=== PATIENT | female | born 1990 | race Caucasian/White ===

== ENCOUNTER → 2018-11-10 | Outpatient (CLI) | payer OTHER | LOC: LAB 19:46 | PROVIDERS: ATTEND Obstetrics & Gynecology | DX: E28.2 Polycystic ovarian syndrome (principal) | CPT/HCPCS: 36415; 84144 ==

== ENCOUNTER → 2018-12-11 | Outpatient (CLI) | payer OTHER | LOC: LAB 18:16 | PROVIDERS: ATTEND Obstetrics & Gynecology | DX: E28.2 Polycystic ovarian syndrome (principal) | CPT/HCPCS: 36415; 84144 ==

== ENCOUNTER → 2018-12-13 | Outpatient (CLI) | payer OTHER ==
--- NOTE | 2018-12-13 12:10 | Diagnostic Imaging Report ---
PROCEDURE: US Non-ob pelvis comp/trans. TECHNIQUE: Multiple realtime grayscale images were obtained of the pelvis in various projections endovaginally. Transabdominal imaging was also performed. INDICATION: Irregular menses. FINDINGS: Uterus measures 6.9 x 4.2 x 3.2 cm. Endometrial thickness is 1.1 cm. There are no discrete myometrial or endometrial masses. Both ovaries are normal in size, morphology and demonstrate normal blood flow. There is a 2 cm right ovarian cyst. There is a trace amount of free fluid near the cervix and right adnexa. There are no solid adnexal masses. IMPRESSION: 2 cm right ovarian cyst, otherwise unremarkable pelvic ultrasound. Dictated by: Dictated on workstation # [id number]
== END ==
LOC: RAD 11:15
PROVIDERS: ATTEND Obstetrics & Gynecology
DX: E28.2 Polycystic ovarian syndrome (principal)
CPT/HCPCS: 76830; 76856

== ENCOUNTER → 2019-04-14 | Outpatient (CLI) | payer OTHER ==
--- NOTE | 2019-04-14 13:43 | Diagnostic Imaging Report ---
INDICATION: survey. TECHNIQUE: Multiple real-time grayscale images were obtained over the gravid uterus. COMPARISON: None FINDINGS: There is a single live fetus in a breech presentation. heart rate was recorded at 133 bpm. Placenta is posterior. Amniotic fluid index is 9.7 cm. Cervical length is 3.8 cm. survey demonstrates kidneys, bladder and stomach to be unremarkable. brain is unremarkable. There is a four-chamber heart. There is three-vessel cord with normal insertion. spine is unremarkable. Biometrical measurements are as follows: Biparietal 4.63 cm, age 20 weeks 0 days. Head circumference 16.86 cm, age 19 weeks 4 days. Abdominal circumference 14.51 cm, age 19 weeks 6 days. Femur length 3.13 cm, age 19 weeks 6 days. Sonographic estimate age: 19 weeks 6 days. Sonographic estimated date of delivery: 09/02/2019. Estimated Weight: 311 gm (+/- 45 gm). LMP percentile: 65%. heart rate: 133 beats per minute. number: 1 of 1. IMPRESSION: Single live IUP 19 weeks 6 days gestational age. Estimated date of confinement sonographically is 09/02/2019. Dictated by: Dictated on workstation # [id number]
== END ==
LOC: RAD 12:00
PROVIDERS: ATTEND Nurse Practitioner Women's Health
DX: Z36.9 Encounter for antenatal screening, unspecified (principal); Z3A.19 19 weeks gestation of pregnancy
CPT/HCPCS: 76805

== ENCOUNTER 2019-08-30 08:05 | Inpatient (IN) | payer OTHER ==
[~2019-08-30] VITALS: Ht 162.6 cm; Wt 72.2 kg
[2019-08-30] VITALS (37 sets, daily range): BP systolic 113–145; BP diastolic 62–93
--- NOTE | 2019-08-30 07:55 | NUR ---
SERA ALONSO presented to unit via ambulation from ED, accompanied by , for scheduled IOL. Pt. weighed, gowned, voided, and to bed. EFHM and TOCO applied, VS taken. Pt. oriented to bed controls, call light, TV, heat, and A/C controls.
--- NOTE | 2019-08-30 08:17 | NUR ---
#20g IV to Rt.wrist x1 attempt by this RN. site patent, secured with opsite. admission labs collected from site.
--- NOTE | 2019-08-30 08:34 | NUR ---
admission paperwork completed.
[2019-08-30 08:40] LABS: BASOPHILS % (AUTO) 0 % (0-10); EOSINOPHILS # (AUTO) 0.1 10^3/uL (0.0-0.3); EOSINOPHILS % (AUTO) 1 % (0-10); HEMATOCRIT 33 % (35-52); HEMOGLOBIN 10.7 G/DL (11.5-16.0); LYMPHOCYTES # (AUTO) 1.9 X 10^3 (1.0-4.0); LYMPHOCYTES % (AUTO) 20 % (12-44); MEAN CORPUSCULAR HEMOGLOBIN 29 PG (25-34); MEAN CORPUSCULAR HGB CONC 33 G/DL (32-36); MEAN CORPUSCULAR VOLUME 88 FL (80-99); MEAN PLATELET VOLUME 11.5 FL (7.4-10.4); MONOCYTES # (AUTO) 0.6 X 10^3 (0.0-1.0); MONOCYTES % (AUTO) 7 % (0-12); NEUTROPHILS # (AUTO) 6.7 X 10^3 (1.8-7.8); NEUTROPHILS % (AUTO) 72 % (42-75); PLATELET COUNT 188 10^3/uL (130-400); RED CELL DISTRIBUTION WIDTH 14.1 % (10.0-14.5); WHITE BLOOD COUNT 9.3 10^3/uL (4.3-11.0)
[2019-08-30] MEDS ORDERED: MINERAL OIL CONCENTRATE 99.9% 15 ML UDC TOP PRN (08:45)
[2019-08-30] MEDS: D5 LR IV SOLUTION 1,000 ML IV SCH ×2 (08:46→23:54)
[2019-08-30 08:48] LABS: BILIRUBIN,URINE NEGATIVE (NEGATIVE); CLARITY,URINE CLEAR; COLOR,URINE YELLOW; GLUCOSE, URINE (UA) TRACE (NEGATIVE); KETONES,URINE NEGATIVE (NEGATIVE); LEUKOCYTE ESTERASE ,URINE TRACE (NEGATIVE); NITRITE,URINE NEGATIVE (NEGATIVE); PROTEIN,URINE NEGATIVE (NEGATIVE)
[2019-08-30 08:55] LABS: BACTERIA,URINE MODERATE /HPF; RBC,URINE RARE /HPF
--- OUTSIDE RECORDS SUMMARY | 2019-08-30 09:01 | XMS REPORT | Continuity of Care Document ---
Author Organization Unknown Address Unknown Phone Unavailable Allergies There is no data. Medications There is no data. Problems Date Dx Coded Attending Type Code Diagnosis Diagnosed By 11/15/2018 HENDERSON DO, ZACH C Ot E28.2 POLYCYSTIC OVARIAN SYNDROME 11/17/2018 HENDERSON DO, ZACH C Ot E28.2 POLYCYSTIC OVARIAN SYNDROME 12/14/2018 HENDERSON DO, ZACH C Ot E28.2 POLYCYSTIC OVARIAN SYNDROME 12/15/2018 HENDERSON DO, ZACH C Ot E28.2 POLYCYSTIC OVARIAN SYNDROME 04/13/2019 HENDERSON DO, ZACH C Ot E28.2 POLYCYSTIC OVARIAN SYNDROME 04/13/2019 HENDERSON DO, ZACH C Ot E28.2 POLYCYSTIC OVARIAN SYNDROME 04/13/2019 HENDERSON DO, ZACH C Ot E28.2 POLYCYSTIC OVARIAN SYNDROME 04/13/2019 HENDERSON DO, ZACH C Ot E28.2 POLYCYSTIC OVARIAN SYNDROME 04/13/2019 HENDERSON DO, ZACH C Ot E28.2 POLYCYSTIC OVARIAN SYNDROME 04/13/2019 HENDERSON DO, ZACH C Ot E28.2 POLYCYSTIC OVARIAN SYNDROME 04/15/2019 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 Z36.9 ENCOUNTER FOR SCREENING, UNSPE 04/15/2019 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 Results There is no data. Encounters ACCT No. Visit Date/Time Discharge Status Pt. Type Provider Facility Loc./Unit Complaint [id number] 04/14/2019 12:00:00 23:59:59 CLS Outpatient ASTER HECK APRN [facility] [id number] 12/13/2018 11:15:00 23:59:59 CLS Outpatient ZACH HENDERSON DO [facility] ACUTE PELVIC PAIN,PCOS [id number] 12/11/2018 18:16:00 23:59:59 CLS Outpatient ZACH HENDERSON DO [facility] PCOS [id number] 11/10/2018 19:46:00 23:59:59 CLS Outpatient ZACH HENDERSON DO [facility] E28.2
--- OUTSIDE RECORDS SUMMARY | 2019-08-30 09:01 | XMS REPORT ---
Author Author Bella LUX Organization [facility] Address [address] [place] [address] Care Team Providers Care Horticulture Teacher Name Role Phone AXEL LUX Unavailable PROBLEMS Unknown Problems ALLERGIES No Known Allergies ENCOUNTERS Encounter Location Date Diagnosis [facility] [address] [facility] [id number] [place] [id number] Mar, Acute nasopharyngitis J00 an d Periumbilical abdominal pain R10.33 [facility] [id number], [place] [address] Jan, Allergic contact dermatitis due to detergent L24.0 IMMUNIZATIONS No Known Immunizations SOCIAL HISTORY Never Assessed REASON FOR VISIT flu symptoms Pt states headache, fever, cough and body aches, all started yeste rday, she has been exposed to influenza B PETRONA Kim PLAN OF CARE Activity Details Follow Up prn Reason: VITAL SIGNS Height 64 in 2017-04-24 Weight 138.4 lbs 2017-04-24 Temperature 99.9 degrees Fahrenheit 2017-04-24 Heart Rate 100 bpm 2017-04-24 Respiratory Rate 20 2017-04-24 BMI 23.75 kg/m2 2017-04-24 Blood pressure systolic 102 mmHg 2017-04-24 Blood pressure diastolic 64 mmHg 2017-04-24 MEDICATIONS No Known Medications RESULTS No Results PROCEDURES No Known procedures INSTRUCTIONS MEDICATIONS ADMINISTERED No Known Medications
[2019-08-30] MEDS ORDERED: fentaNYL 2 mcg/ml BUPIVA 0.125 100 ML ONE (11:03)
[2019-08-30] MEDS ORDERED: LACTATED RINGERS 1,000 ML IV ONE ×2 (11:04→11:19)
[2019-08-30] MEDS ORDERED: BUPIVACAINE 0.25% 30 ML (SENSORCAINE) VIAL ONE (11:06)
[2019-08-30] MEDS ORDERED: OXYTOCIN PRE-MIX DRIP 500 ML IV SCH ×2 (11:06→16:39)
[2019-08-30] MEDS ORDERED: fentaNYL INJECTION 100 MCG/2 ML AMP ONE (11:07)
[2019-08-30] MEDS ORDERED: OXYTOCIN PRE-MIX DRIP 500 ML IV ONE (11:09)
[2019-08-30] MEDS ORDERED: EPIDURAL (fentaNYL 2 MCG/ML BUPIVA 0.125%)100 ML BAG EPI SCH (11:30)
[2019-08-30] MEDS ORDERED: ONDANSETRON 4 MG/2 ML (SDV) Z0FRAN IV PRN (11:30)
[2019-08-30] MEDS ORDERED: NALOXONE 0.4 MG/ML 1 ML (NARCAN) VIAL IV PRN (11:30)
[2019-08-30] MEDS ORDERED: diphenhydrAMINE 50 MG/ML INJ (BENADRYL) IV PRN (11:30)
[2019-08-30] MEDS ORDERED: CATHETER FLUSH 10 ML SYR IV PRN (11:30)
[2019-08-30] MEDS: fentaNYL 2 mcg/ml BUPIVA 0.125 100 ML IV SCH (11:40)
[2019-08-30] MEDS ORDERED: LIDOCAINE/EPI 2% 1:200,00 (XYLOCAINE) 20 ML VIAL ONE (14:53)
[2019-08-30] MEDS ORDERED: MEASLES,MUMPS,RUBELLA 1 EA INJ SQ ONE (16:45)
[2019-08-30] MEDS ORDERED: WITCH HAZEL(TUCKS) 40 EA JAR TOP PRN (16:45)
[2019-08-30] MEDS ORDERED: TETANUS,DIPTH,PERTUSS P/F (BOOSTRIX) 0.5 ML VIAL IM ONE (16:45)
[2019-08-30] MEDS ORDERED: DIBUCAINE (NUPERCAINAL) 1% OINT 30 GM TOP PRN (16:45)
[2019-08-30] MEDS ORDERED: BENZOCAINE/MENTHOL (DERMOPLAST) 60 ML CAN TP PRN (16:45)
--- NOTE | 2019-08-30 16:45 | OB Labor & Delivery Record ---
Vag Delivery Note Vag Delivery Note Date of Delivery: 08/30/19 Preoperative Diagnosis: Bella Mabry is a 29 /Para 1/0 ,Gestational Age 39 1/7 weeks, social induction Postoperative Diagnosis: Same Surgeon: ZACH HENDERSON Anesthesia: epidural Delivery Type: vaginal Findings: Viable female , apgars 7/9, weight 7#2ounces Lacerations: perineal abrasion, not requiring repair Intact placenta with 3 vessel cord. There was a nuchal cord that slipped to shoulder/body cord after the head delivered. Estimated Blood Loss: 200 ml Complications: None Condition: Stable Description of Procedure: The patient is a 29 year old female who presented for induction of labor. She was admitted and informed consent was obtained. Her labor course was remarkable for AROM/augmentation with oxytocin. She progressed to complete dilatation and began to push. She was then set up for delivery. The infant's head was delivered atraumatically in the LUL position. The shoulders and remainder of the infant's body were then delivered without difficulty. There was a nuchal cord that slipped around the shoulders after delivery of the head. Upon delivery, the head was held below the level of the perineum and the mouth and nares were bulb suctioned. The cord was doubly clamped and cut and the infant was handed off to the pediatric staff. An intact placenta with 3-vessel cord delivered via Raghu and there was found to be minimal bleeding.~ Vigorous fundal massage was performed and the fundus was found to be firm. IV oxytocin was given. Examination of the vagina and perineum revealed a perineal abrasion. It was hemostatic. Following the delivery, sponge, instrument and needle counts were correct. Mom and baby were both in stable condition in the labor suite. Vitals - Labs Vital Signs - I&O Vital Signs Date Time Temp Pulse Resp B/P (MAP) Pulse Ox O2 Delivery O2 Flow Rate FiO2 08/30/19 14:30 69 18 144/93 (110) 99 Room Air 08/30/19 14:15 68 18 133/84 (100) 99 Room Air 08/30/19 14:00 65 18 131/75 (93) 99 Room Air 08/30/19 13:45 65 18 123/89 (100) 99 Room Air 08/30/19 13:30 69 18 131/79 (96) 99 Room Air 08/30/19 13:15 37.2 83 18 145/71 (95) 99 Room Air 08/30/19 13:00 64 18 123/76 (92) 99 Room Air 08/30/19 12:45 63 18 132/80 (97) 98 Room Air 08/30/19 12:30 67 18 113/77 (89) 97 Room Air 08/30/19 12:15 63 18 116/67 (83) 98 Room Air 08/30/19 12:00 65 18 98 Room Air 08/30/19 11:55 64 18 118/78 (91) 98 Room Air 08/30/19 11:50 73 18 136/81 (99) 98 Room Air 08/30/19 11:45 80 18 128/72 (90) 98 Room Air 08/30/19 11:40 84 18 124/70 (88) 97 Room Air 08/30/19 11:35 72 18 129/82 (98) 98 Room Air 08/30/19 11:30 71 18 127/80 (96) 98 Room Air 08/30/19 11:25 70 130/88 (102) Room Air 08/30/19 11:00 75 18 141/76 (97) Room Air 08/30/19 10:30 69 18 123/85 (98) Room Air 08/30/19 10:00 64 18 134/82 (99) Room Air 08/30/19 09:30 77 18 135/78 (97) Room Air 08/30/19 09:20 71 136/77 (96) Room Air 08/30/19 09:10 37.3 98 18 97 Room Air 08/30/19 08:10 37.3 98 18 135/91 (106) 97 Room Air Labs Laboratory Tests 08/30/19 08:15: Urine Color YELLOW, Urine Clarity CLEAR, Urine pH 6.0, Urine Specific [place] <=1.005, Urine Protein NEGATIVE, Urine Glucose (UA) TRACEH, Urine Ketones NEGATIVE, Urine Nitrite NEGATIVE, Urine Bilirubin NEGATIVE, Urine Urobilinogen 0.2, Urine Leukocyte Esterase TRACEH, Urine RBC (Auto) NEGATIVE, Urine RBC RARE, Urine WBC 5-10H, Urine Squamous Epithelial Cells 2-5, Urine Crystals NONE, Urine Bacteria MODERATEH, Urine Casts NONE, Urine Mucus NEGATIVE, Urine Culture Indicated CULTURE PENDING 08/30/19 08:17: White Blood Count 9.3, Red Blood Count 3.70L, Hemoglobin 10.7L, Hematocrit 33L, Mean Corpuscular Volume 88, Mean Corpuscular Hemoglobin 29, Mean Corpuscular Hemoglobin Concent 33, Red Cell Distribution Width 14.1, Platelet Count 188, Mean Platelet Volume 11.5H, Neutrophils (%) (Auto) 72, Lymphocytes (%) (Auto) 20, Monocytes (%) (Auto) 7, Eosinophils (%) (Auto) 1, Basophils (%) (Auto) 0, Neutrophils # (Auto) 6.7, Lymphocytes # (Auto) 1.9, Monocytes # (Auto) 0.6, Eosinophils # (Auto) 0.1, Basophils # (Auto) 0.0 ZACH HENDERSON DO August 30, 2019 16:45
[2019-08-30] MEDS: IBUPROFEN 600 MG (MOTRIN) TAB PO SCH ×2 (17:19→23:07)
--- NOTE | 2019-08-30 18:20 | NUR ---
FF1/u. lt-moderate rubra. assisted up to BR. voided without difficulty. linda-care instructions given, returned demonstration.
--- NOTE | 2019-08-30 18:30 | NUR ---
pt transferred to room 309 via w/c with and @ side. familiarized with room & surroundings. call light within reach.
--- NOTE | 2019-08-30 19:11 | NUR ---
report given to MARCO ANTONIO Vazquez.
[2019-08-30] MEDS: DOCUSATE SODIUM 100 MG (COLACE) CAP PO SCH (20:27)
[2019-08-30] MEDS: ACETAMINOPHEN 500 MG TAB (TYLENOL) PO SCH (20:28)
[2019-08-30] MEDS: CATHETER FLUSH 10 ML SYR IV SCH (23:54)
[2019-08-31] MEDS: IBUPROFEN 600 MG (MOTRIN) TAB PO SCH ×4 (04:53→23:53)
[2019-08-31 04:58] LABS: BASOPHILS % (AUTO) 0 % (0-10); EOSINOPHILS # (AUTO) 0.1 10^3/uL (0.0-0.3); EOSINOPHILS % (AUTO) 0 % (0-10); HEMATOCRIT 28 % (35-52); HEMOGLOBIN 9.4 G/DL (11.5-16.0); LYMPHOCYTES # (AUTO) 1.7 X 10^3 (1.0-4.0); LYMPHOCYTES % (AUTO) 14 % (12-44); MEAN CORPUSCULAR HEMOGLOBIN 29 PG (25-34); MEAN CORPUSCULAR HGB CONC 33 G/DL (32-36); MEAN CORPUSCULAR VOLUME 88 FL (80-99); MEAN PLATELET VOLUME 10.7 FL (7.4-10.4); MONOCYTES # (AUTO) 1.1 X 10^3 (0.0-1.0); MONOCYTES % (AUTO) 9 % (0-12); NEUTROPHILS # (AUTO) 9.3 X 10^3 (1.8-7.8); NEUTROPHILS % (AUTO) 77 % (42-75); PLATELET COUNT 166 10^3/uL (130-400); RED CELL DISTRIBUTION WIDTH 14.1 % (10.0-14.5); WHITE BLOOD COUNT 12.1 10^3/uL (4.3-11.0)
[2019-08-31 05:02] VITALS: BP 113/70
[2019-08-31] MEDS: ACETAMINOPHEN 500 MG TAB (TYLENOL) PO SCH ×3 (07:02→20:56)
[2019-08-31] MEDS: D5 LR IV SOLUTION 1,000 ML IV SCH ×3 (07:02→16:37)
[2019-08-31] MEDS: CATHETER FLUSH 10 ML SYR IV SCH ×2 (07:02→12:34)
[2019-08-31] MEDS ORDERED: FERROUS SULF 325 MG (IRON) TAB PO SCH (08:00)
[2019-08-31 08:30] VITALS: BP 118/71
[2019-08-31] MEDS: DOCUSATE SODIUM 100 MG (COLACE) CAP PO SCH ×2 (08:37→20:56)
[2019-08-31] MEDS: PRENATAL VITAMIN 1 EA TAB PO SCH (08:37)
--- NOTE | 2019-08-31 08:57 | Postpartum Progress Note ---
Note Note Day # 1 s/p Subjective: Patient is without complaints. Ambulating, voiding. Tolerating a regular diet without nausea or vomiting. Normal lochia. Pain is well controlled with oral pain medications. breast/bottle feeding. Objective: 08/30/19 08/31/19 08/31/19 23:50 05:02 08:30 Temp 36.8 36.8 36.4 Pulse 77 81 84 Resp 18 18 16 B/P (MAP) 123/71 (88) 113/70 (84) 118/71 (87) Pulse Ox 96 98 Laboratory Tests Test 08/31/19 04:45 Range/Units White Blood Count 12.1 H 4.3-11.0 10^3/uL Red Blood Count 3.22 L 4.35-5.85 10^6/uL Hemoglobin 9.4 L 11.5-16.0 G/DL Hematocrit 28 L 35-52 % Mean Corpuscular Volume 88 80-99 FL Mean Corpuscular Hemoglobin 29 25-34 PG Mean Corpuscular Hemoglobin Concent 33 32-36 G/DL Red Cell Distribution Width 14.1 10.0-14.5 % Platelet Count 166 130-400 10^3/uL Mean Platelet Volume 10.7 H 7.4-10.4 FL Neutrophils (%) (Auto) 77 H 42-75 % Lymphocytes (%) (Auto) 14 12-44 % Monocytes (%) (Auto) 9 0-12 % Eosinophils (%) (Auto) 0 0-10 % Basophils (%) (Auto) 0 0-10 % Neutrophils # (Auto) 9.3 H 1.8-7.8 X 10^3 Lymphocytes # (Auto) 1.7 1.0-4.0 X 10^3 Monocytes # (Auto) 1.1 H 0.0-1.0 X 10^3 Eosinophils # (Auto) 0.1 0.0-0.3 10^3/uL Basophils # (Auto) 0.0 0.0-0.1 10^3/uL Physical Exam: General - Alert and oriented, no apparent distress Abdomen - Soft, appropriately tender to palpation, non-distended, fundus firm at umbilicus Extremities - no edema, negative Dina's bilaterally Assessment: 1. post- day # 1, status post spontaneous vaginal delivery. Recovering well, hemodynamically stable Plan: Routine care. Encourage breast feeding. Encourage ambulation. Ferrous sulfate supplementation. Plan for discharge tomorrow Vitals - Labs Vital Signs - I&O Vital Signs Date Time Temp Pulse Resp B/P (MAP) Pulse Ox O2 Delivery O2 Flow Rate FiO2 08/31/19 08:30 36.4 84 16 118/71 (87) 98 08/31/19 05:02 36.8 81 18 113/70 (84) 96 08/30/19 23:50 36.8 77 18 123/71 (88) 08/30/19 20:00 36.2 78 18 129/73 (91) 08/30/19 18:00 104 18 125/71 (89) Room Air 08/30/19 17:45 80 18 114/62 (79) Room Air 08/30/19 17:30 90 18 124/69 (87) Room Air 08/30/19 17:15 37.3 83 18 121/72 (88) Room Air 08/30/19 17:00 86 18 118/70 (86) Room Air 08/30/19 16:45 102 18 126/71 (89) Room Air 08/30/19 16:30 95 18 117/73 (88) Room Air 08/30/19 16:00 Room Air 08/30/19 15:45 Room Air 08/30/19 15:30 109 18 134/89 (104) Room Air 08/30/19 15:15 75 18 131/80 (97) 99 Room Air 08/30/19 15:00 74 18 131/70 (90) 100 Room Air 08/30/19 14:45 71 18 133/88 (103) 99 Room Air 08/30/19 14:30 69 18 144/93 (110) 99 Room Air 08/30/19 14:15 68 18 133/84 (100) 99 Room Air 08/30/19 14:00 65 18 131/75 (93) 99 Room Air 08/30/19 13:45 65 18 123/89 (100) 99 Room Air 08/30/19 13:30 69 18 131/79 (96) 99 Room Air 08/30/19 13:15 37.2 83 18 145/71 (95) 99 Room Air 08/30/19 13:00 64 18 123/76 (92) 99 Room Air 08/30/19 12:45 63 18 132/80 (97) 98 Room Air 08/30/19 12:30 67 18 113/77 (89) 97 Room Air 08/30/19 12:15 63 18 116/67 (83) 98 Room Air 08/30/19 12:00 65 18 98 Room Air 08/30/19 11:55 64 18 118/78 (91) 98 Room Air 08/30/19 11:50 73 18 136/81 (99) 98 Room Air 08/30/19 11:45 80 18 128/72 (90) 98 Room Air 08/30/19 11:40 84 18 124/70 (88) 97 Room Air 08/30/19 11:35 72 18 129/82 (98) 98 Room Air 08/30/19 11:30 71 18 127/80 (96) 98 Room Air 08/30/19 11:25 70 130/88 (102) Room Air 08/30/19 11:00 75 18 141/76 (97) Room Air 08/30/19 10:30 69 18 123/85 (98) Room Air 08/30/19 10:00 64 18 134/82 (99) Room Air 08/30/19 09:30 77 18 135/78 (97) Room Air 08/30/19 09:20 71 136/77 (96) Room Air 08/30/19 09:10 37.3 98 18 97 Room Air Labs Laboratory Tests 08/31/19 04:45: White Blood Count 12.1H, Red Blood Count 3.22L, Hemoglobin 9.4L, Hematocrit 28L, Mean Corpuscular Volume 88, Mean Corpuscular Hemoglobin 29, Mean Corpuscular Hemoglobin Concent 33, Red Cell Distribution Width 14.1, Platelet Count 166, Mean Platelet Volume 10.7H, Neutrophils (%) (Auto) 77H, Lymphocytes (%) (Auto) 14, Monocytes (%) (Auto) 9, Eosinophils (%) (Auto) 0, Basophils (%) (Auto) 0, Neutrophils # (Auto) 9.3H, Lymphocytes # (Auto) 1.7, Monocytes # (Auto) 1.1H, Eosinophils # (Auto) 0.1, Basophils # (Auto) 0.0 ZACH HENDERSON DO August 31, 2019 08:57
--- NOTE | 2019-08-31 09:06 | Anesthesia-Regional Post-Op ---
Regional Patient Condition Mental Status: Alert, Oriented x3 Circulation: Same as Pre-Op Headache: Absent Sensation: Full Recovery Motor Block: Absent Post Op Complications Complications None Follow Up Care/Instructions Patient Instructions None needed. Anesthesia/Patient Condition Patient is doing well, no complaints, stable vital signs, no apparent adverse anesthesia problems. No complications reported per nursing. RICARDO COPPOLA CRNA August 31, 2019 09:06
[2019-08-31] MEDS: FERROUS SULF 325 MG (IRON) TAB PO SCH ×2 (11:08→17:24)
[2019-08-31 12:34] VITALS: BP 132/82
[2019-08-31] MEDS: fentaNYL 2 mcg/ml BUPIVA 0.125 100 ML IV SCH (12:42)
[2019-08-31 16:32] VITALS: BP 115/68
[2019-08-31 21:00] VITALS: BP 150/69
[2019-09-01] MEDS: CATHETER FLUSH 10 ML SYR IV SCH ×2 (00:03→05:34)
--- NOTE | 2019-09-01 00:04 | NUR ---
Pt given PO medication and then back to bed, no concerns at this time.
[2019-09-01 02:47] VITALS: BP 120/77
[2019-09-01] MEDS: D5 LR IV SOLUTION 1,000 ML IV SCH (05:34)
[2019-09-01] MEDS: ACETAMINOPHEN 500 MG TAB (TYLENOL) PO SCH (05:35)
[2019-09-01] MEDS: IBUPROFEN 600 MG (MOTRIN) TAB PO SCH ×2 (05:36→11:30)
--- NOTE | 2019-09-01 05:38 | Postpartum Progress Note ---
Note Note Day # 2 s/p Subjective: Patient is without complaints. Ambulating, voiding. Tolerating a regular diet without nausea or vomiting. Normal lochia. Pain is well controlled with oral pain medications.bottle feeding. [] Objective: 08/31/19 09/01/19 21:00 02:47 Temp 36.9 36.4 Pulse 72 67 Resp 18 18 B/P (MAP) 150/69 (96) 120/77 (91) Pulse Ox 98 98 Physical Exam: General - Alert and oriented, no apparent distress Abdomen - Soft, appropriately tender to palpation, non-distended, fundus firm at umbilicus Extremities - no edema, negative Dina's bilaterally Assessment: 1. post- day # 2, status post spont vaginal delivery. Recovering well, hemodynamically stable Plan: Routine care. Encourage ambulation. Ferrous sulfate supplementation. Plan for discharge today Vitals - Labs Vital Signs - I&O Vital Signs Date Time Temp Pulse Resp B/P (MAP) Pulse Ox O2 Delivery O2 Flow Rate FiO2 09/01/19 02:47 36.4 67 18 120/77 (91) 98 08/31/19 21:00 36.9 72 18 150/69 (96) 98 08/31/19 16:32 36.5 81 18 115/68 (84) 97 Room Air 08/31/19 12:34 36.3 74 18 132/82 (99) 99 Room Air 08/31/19 08:30 36.4 84 16 118/71 (87) 98 Labs Microbiology 08/30/19 Urine Culture - Final, Complete NO GROWTH ZACH HENDERSON DO September 01, 2019 05:38
--- NOTE | 2019-09-01 05:39 | NUR ---
Pt c/o cramping, medication given and pt up moving in room well. no concerns at this time.
[2019-09-01] MEDS: fentaNYL 2 mcg/ml BUPIVA 0.125 100 ML IV SCH (06:10)
[2019-09-01] MEDS ORDERED: FERR325T18 PO (06:21)
[2019-09-01] MEDS ORDERED: ACET-93 PO (06:21)
[2019-09-01] MEDS ORDERED: IBUP-844 PO (06:21)
--- NOTE | 2019-09-01 06:23 | Discharge Inst-Women's Service ---
Discharge Inst-Women's Serv Depart Medication/Instructions New, Converted or Re-Newed RX: Transmitted to Pharmacy Final Diagnosis Social induction Vaginal delivery ovulation disorder (infertility due to) PCOS antepartum and acute blood loss anemia Problems Reviewed?: Yes Consults/Follow Up Additional Follow Up: Yes (1 week for phone visit (schedule with John office); 6 week post exam) Activity Activity: Activity as Tolerated Driving Instructions: You May Drive NO SMOKING: NO SMOKING Nothing Inside Vagina: No Douching, No [place], No Tampons Diet Discharge Diet: No Restrictions Symptoms to Report to : Swelling Increased, Bleeding Excessive, Pain Increased, Fever Over 101 Degrees F, Vaginal Bleeding Increase, Cramps in Feet or Legs, Vaginal Discharge Foul For Any Problems or Questions: Contact Your Physician ZACH HENDERSON DO September 01, 2019 06:23
[2019-09-01] MEDS ORDERED: CYCL10TA9 PO (09:03)
[2019-09-01] MEDS: DOCUSATE SODIUM 100 MG (COLACE) CAP PO SCH (09:19)
[2019-09-01] MEDS: FERROUS SULF 325 MG (IRON) TAB PO SCH (09:19)
[2019-09-01] MEDS: PRENATAL VITAMIN 1 EA TAB PO SCH (09:19)
[2019-09-01 09:20] VITALS: BP 118/74
--- NOTE | 2019-09-01 09:20 | NUR ---
initial shift assessment completed, see interventions for further. POC reviewed, states understanding.
--- NOTE | 2019-09-01 11:20 | NUR ---
dismissal instructions given, verbalizes understanding. reviewed d/c Rx's and follow up appointments. signature leanna signed, placed on chart.
--- NOTE | 2019-09-01 11:55 | NUR ---
pt ambulated to private vehicle with this RN, and @ side. secured in rear facing car seat. pt stable with no sx's of distress noted.
== END 2019-09-01 11:55 | disposition home or self-care (01) | DRG 806 ==
LOC: LDRP 08:05
PROVIDERS: ADMIT Obstetrics & Gynecology; ATTEND Obstetrics & Gynecology
PROC: 10E0XZZ Delivery of Products of Conception, External Approach (ICD-10-PCS; principal; 2019-08-30)
PROC: 10907ZC Drainage of Amniotic Fluid, Therapeutic from Products of Conception, Via Natural or Artificial Opening (ICD-10-PCS; 2019-08-30)
DX: O99.284 Endocrine, nutritional and metabolic diseases complicating childbirth (principal); E28.2 Polycystic ovarian syndrome; O69.81X0 Labor and delivery complicated by cord around neck, without compression, not applicable or unspecified; O99.013 Anemia complicating pregnancy, third trimester; O90.81 Anemia of the puerperium; D62 Acute posthemorrhagic anemia; Z37.0 Single live birth; Z3A.39 39 weeks gestation of pregnancy
CPT/HCPCS: 36415; 81000; 85025; 86850; 86900; 86901; 87088

== ENCOUNTER → 2020-09-25 | Outpatient (CLI) | payer OTHER ==
[~2020-09-25] MED LIST: ACET-93 PO; CYCL10TA9 PO; FERR325T18 PO; IBUP-844 PO
[2020-09-25 17:19] LABS: BASOPHILS % (AUTO) 0 % (0-10); EOSINOPHILS # (AUTO) 0.1 10^3/uL (0.0-0.3); EOSINOPHILS % (AUTO) 1 % (0-10); HEMATOCRIT 39 % (35-52); HEMOGLOBIN 13.1 g/dL (11.5-16.0); LYMPHOCYTES # (AUTO) 1.7 10^3/uL (1.0-4.0); LYMPHOCYTES % (AUTO) 24 % (12-44); MEAN CORPUSCULAR HEMOGLOBIN 29 pg (25-34); MEAN CORPUSCULAR HGB CONC 33 g/dL (32-36); MEAN CORPUSCULAR VOLUME 88 fL (80-99); MONOCYTES # (AUTO) 0.2 10^3/uL (0.0-1.0); MONOCYTES % (AUTO) 3 % (0-12); NEUTROPHILS # (AUTO) 5.2 10^3/uL (1.8-7.8); NEUTROPHILS % (AUTO) 71 % (42-75); PLATELET COUNT 312 10^3/uL (130-400); WHITE BLOOD COUNT 7.3 10^3/uL (4.3-11.0)
[2020-09-25 17:37] LABS: INR 1.1 (0.8-1.4); PROTHROMBIN TIME PATIENT 14.3 SEC (12.2-14.7)
[2020-09-25 17:38] LABS: ALBUMIN 4.3 GM/DL (3.2-4.5); CHLORIDE 103 MMOL/L (98-107); POTASSIUM 3.5 MMOL/L (3.6-5.0); SODIUM 140 MMOL/L (135-145)
[2020-09-25 17:40] LABS: CALCIUM 9.4 MG/DL (8.5-10.1)
[2020-09-25 17:41] LABS: GLUCOSE 107 MG/DL (70-105); TOTAL PROTEIN 7.5 GM/DL (6.4-8.2)
[2020-09-25 17:42] LABS: BILIRUBIN,TOTAL 0.3 MG/DL (0.1-1.0); CARBON DIOXIDE 26 MMOL/L (21-32)
[2020-09-25 17:44] LABS: ALKALINE PHOSPHATASE 35 U/L (40-136); CREATININE SERUM 0.86 MG/DL (0.60-1.30); GFR ESTIMATED > 60
[2020-09-25 17:45] LABS: BUN/CREATININE RATIO 8
[2020-09-25 17:47] LABS: ALANINE AMINOTRANSFERASE 10 U/L (0-55)
== END ==
LOC: LAB 16:50
PROVIDERS: ATTEND Surgery
DX: Z01.812 Encounter for preprocedural laboratory examination (principal)
CPT/HCPCS: 36415; 80053; 85025; 85610

== ENCOUNTER 2021-08-07 17:11 | Outpatient (RCR) | payer OTHER ==
[~2021-08-07 17:11] MED LIST changes: +CYCL10TA25 PO; -CYCL10TA9 PO
[2021-08-07 17:33] LABS: ALBUMIN 4.2 GM/DL (3.2-4.5)
[2021-08-07 17:36] LABS: TOTAL PROTEIN 7.6 GM/DL (6.4-8.2)
[2021-08-07 17:38] LABS: BILIRUBIN,TOTAL 0.2 MG/DL (0.1-1.0)
[2021-08-07 17:41] LABS: BILIRUBIN,DIRECT 0.1 MG/DL (0.0-0.3); BILIRUBIN,INDIRECT 0.1 MG/DL
== END 2021-08-24 | disposition home or self-care (01) ==
LOC: LAB 17:11 → EDSTATUS 17:17
PROVIDERS: ATTEND Podiatrist Foot & Ankle Surgery
DX: B35.1 Tinea unguium (principal)
CPT/HCPCS: 36415; 80076

== ENCOUNTER 2021-09-18 11:32 | Outpatient (RCR) | payer OTHER ==
[2021-09-18 12:09] LABS: TOTAL PROTEIN 7.3 GM/DL (6.4-8.2)
[2021-09-18 12:11] LABS: BILIRUBIN,TOTAL 0.3 MG/DL (0.1-1.0)
[2021-09-18 12:14] LABS: BILIRUBIN,DIRECT 0.1 MG/DL (0.0-0.3); BILIRUBIN,INDIRECT 0.2 MG/DL
== END 2021-09-24 | disposition home or self-care (01) ==
LOC: LAB 11:32
PROVIDERS: ATTEND Podiatrist Foot & Ankle Surgery
DX: B35.1 Tinea unguium (principal)
CPT/HCPCS: 36415; 80076